=== PATIENT | male | born 1995 | race Two or more races ===

== ENCOUNTER 2024-01-06 22:28 | Emergency (ER) | payer MEDICAID ==
[~2024-01-06] VITALS: Ht 180.3 cm; Wt 118.0 kg
[2024-01-06 22:30] VITALS: BP 133/86; PULSE 137; RESP 19; O2SAT 94
[2024-01-06 23:33] VITALS: TEMP 97.7
== END 2024-01-06 23:34 | disposition home or self-care (01) ==
LOC: ER 22:30
DX: S00.212A Abrasion of left eyelid and periocular area, initial encounter (principal); M25.511 Pain in right shoulder; V98.8XXA Other specified transport accidents, initial encounter; Y93.89 Activity, other specified; Y92.89 Other specified places as the place of occurrence of the external cause; Y99.8 Other external cause status
CPT/HCPCS: 99283

== ENCOUNTER 2024-07-28 22:53 | Emergency (ER) | payer MEDICAID, OTHER ==
[~2024-07-28] VITALS: Ht 180.3 cm; Wt 123.7 kg
[2024-07-28 23:02] VITALS: TEMP 97.7
[2024-07-29] MEDS ORDERED: iohexol 350MG/ML 100ml bottle IV ONE (00:02)
[2024-07-29] MEDS: normal saline 1000ml 1,000 ML IV ONE (01:31)
[2024-07-29 02:11] VITALS: BP 129/88; PULSE 86; O2SAT 98
[2024-07-29 02:16] VITALS: RESP 18
[2024-07-29] MEDS: ketorolac trometh 15mg/ml vial 15 MG/ML ML IV ONE (02:16)
[2024-07-29] MEDS: acetaminophen 325mg tablet PO ONE (02:18)
== END 2024-07-29 02:47 | disposition home or self-care (01) ==
LOC: ER 22:54
DX: S52.101A Unspecified fracture of upper end of right radius, initial encounter for closed fracture (principal); S52.001A Unspecified fracture of upper end of right ulna, initial encounter for closed fracture; V29.888A Rider (driver) (passenger) of other motorcycle injured in other specified transport accidents, initial encounter; Y93.89 Activity, other specified; Y92.89 Other specified places as the place of occurrence of the external cause; Y99.8 Other external cause status
CPT/HCPCS: 29105; 73206; 96361; 96374; 99285; J1885; J7030; Q9967; A4565; A6449

== ENCOUNTER 2024-08-03 10:25 | Emergency (ER) | payer MEDICAID, OTHER ==
[~2024-08-03] VITALS: Ht 180.3 cm; Wt 118.2 kg
[2024-08-03 10:28] VITALS: BP 153/112; PULSE 136; RESP 20; TEMP 98.8; O2SAT 94
[2024-08-03] MEDS: ibuprofen tablet 400 MG TABLET PO ONE (12:48)
== END 2024-08-03 13:01 ==
LOC: ER 10:25
DX: S52.91XD Unspecified fracture of right forearm, subsequent encounter for closed fracture with routine healing (principal); Z02.89 Encounter for other administrative examinations; X58.XXXD Exposure to other specified factors, subsequent encounter
CPT/HCPCS: 29125; 73090; 99284; A4565; A6258; A6446; A6449

== ENCOUNTER 2024-09-22 10:08 | Emergency (ER) | payer MEDICAID ==
[~2024-09-22] VITALS: Ht 180.3 cm; Wt 116.6 kg
[2024-09-22 10:23] VITALS: TEMP 96.8
[2024-09-22 12:06] LABS: BILIRUBIN,URINE NEGATIVE (Neg); CLARITY,URINE SLIGHTLY CLOUDY (Clear); COLOR,URINE YELLOW (Yellow); GLUCOSE, URINE NEGATIVE (Neg); KETONES,URINE NEGATIVE (Neg); LEUKOCYTE ESTERASE ,URINE SMALL (Neg); OCCULT BLOOD,URINE TRACE-INTACT (Neg); PROTEIN,URINE TRACE mg/dl (Neg); UROBILINOGEN,URINE 0.2 E.U/dL (0.2-1.0)
[2024-09-22 12:14] LABS: UA COLLECTION TYPE CLN CATCH MIDSTREAM
[2024-09-22 12:25] LABS: NITRITES, URINE NEGATIVE (Neg)
[2024-09-22 12:26] LABS: BACTERIA,URINE 3+ /HPF (Neg); RBC,URINE 0-2 /HPF (0-2); WBC,URINE 50-100 /HPF (0-4)
[2024-09-22 12:27] LABS: MUCUS STRANDS FEW /LPF (Neg); SQUAMOUS EPITHELIAL CELL,UR FEW /LPF (FEW)
[2024-09-22 13:39] LABS: BASOPHILS # (AUTO) 0.1 X10'3 (0-0.2); BASOPHILS % (AUTO) 0.7 % (0-1); EOSINOPHILS # (AUTO) 0.1 X10'3 (0-0.9); EOSINOPHILS % (AUTO) 1.1 % (0-6); HEMATOCRIT 42.5 % (42.0-52.0); HEMOGLOBIN 14.3 g/dl (14.0-17.9); LYMPHOCYTES # (AUTO) 1.8 X10'3 (1.1-4.8); LYMPHOCYTES % (AUTO) 18.8 % (21-51); MEAN CORPUSCULAR HEMOGLOBIN 29.8 PG (27.0-31.0); MEAN CORPUSCULAR HGB CONC 33.7 g/dL (33.0-36.5); MEAN CORPUSCULAR VOLUME 88.5 FL (78-98); MEAN PLATELET VOLUME 8.1 FL (7.4-10.4); MONOCYTES # (AUTO) 0.7 X10'3 (0-0.9); MONOCYTES % (AUTO) 7.4 % (2-12); NEUTROPHILS # (AUTO) 6.8 X10'3 (1.8-7.7); PLATELET COUNT 444 X10'3 (140-440); RED BLOOD COUNT 4.81 X10'6 (4.70-6.10); RED CELL DISTRIBUTION WIDTH 13.9 % (11.5-14.5); WHITE BLOOD COUNT 9.4 X10'3 (4.5-11.0)
[2024-09-22] MEDS: CefTRIAXone 1000mg IM Kit (w/lidocaine diluent) IM STA (14:12)
[2024-09-22] MEDS: azithromycin 250mg tablet PO ONE (14:14)
[2024-09-22 15:31] LABS: ALANINE AMINOTRANSFERASE 39 U/L (12-78); ALBUMIN 3.5 G/DL (3.4-5.0); ALBUMIN/GLOBULIN RATIO 0.6 (1.1-1.5); ALKALINE PHOSPHATASE 128 IU/L (46-116); ANION GAP 9 (8-16); ASPARTATE AMINO TRANSFERASE 13 U/L (10-37); BILIRUBIN,TOTAL 0.4 MG/DL (0.1-1.0); BLOOD UREA NITROGEN 11 MG/DL (7-18); BUN/CREATININE RATIO 11.6 (10.0-20.0); CALCIUM 9.4 MG/DL (8.5-10.1); CHLORIDE 102 MMOL/L (99-107); CREATININE 0.95 MG/DL (0.60-1.10); GLUCOSE 94 MG/DL (70-104); POTASSIUM 4.5 MMOL/L (3.5-5.1); SODIUM 135 MMOL/L (135-145); TOTAL CARBON DIOXIDE 24.4 MMOL/L (24-32); TOTAL PROTEIN 8.9 G/DL (6.4-8.2); eCRCL 126 ML/MIN; eGFR > 90 ML/MIN
[2024-09-22 15:36] LABS: LACTATE DEHYDROGENASE 128 U/L (85-227)
[2024-09-22 15:39] LABS: BETA HCG,QUANTITATIVE < 1.0 mIU/ml
[2024-09-22 16:00] VITALS: BP 144/98; PULSE 89; RESP 18; O2SAT 98
[2024-09-22] MEDS ORDERED: DOXY100C43 PO (16:30)
[2024-09-25 11:11] LABS: CHLAMYDIA TRACHOMATIS, NAA Negative (Negative)
== END 2024-09-22 16:54 | disposition home or self-care (01) ==
LOC: ER 10:09
DX: N50.89 Other specified disorders of the male genital organs (principal); N39.0 Urinary tract infection, site not specified; N50.811 Right testicular pain
CPT/HCPCS: 36415; 76870; 80053; 81001; 82103; 83615; 85025; 86592; 87077; 87088; 87186; 87491; 87591; 93976; 96372; 99285; J0696; 84702